=== PATIENT | female | born 1965 | race Caucasian/White ===

== ENCOUNTER 2016-06-01 03:19 | Outpatient (CLI) | payer OTHER | END 2016-06-01 03:20 | disposition home or self-care (01) | LOC: MADLAB 03:19 | PROVIDERS: ATTEND Family Medicine | DX: N83.209 Unspecified ovarian cyst, unspecified side (principal) | CPT/HCPCS: 36415; 86304 ==

== ENCOUNTER 2016-10-12 19:17 | Emergency (ER) | payer OTHER ==
[2016-10-12] MEDS ORDERED: Albuterol Sulfate 2.5 mg/0.5 ml Neb ONE (19:21)
[2016-10-12] MEDS ORDERED: Dexamethasone 4 mg/ml Vial ONE (19:21)
[2016-10-12] MEDS ORDERED: Dexamethasone 10 MG/ML VIAL ONE (19:22)
[2016-10-12] MEDS ORDERED: EPINEPHrine 1 MG/ML AMP ONE (19:22)
[2016-10-12] MEDS ORDERED: diphenhydrAMINE HCl 50 MG/ML 1 ML VIAL ONE (19:27)
[2016-10-12] MEDS ORDERED: Famotidine In NaCl 20 mg/50 ml Premix Bag ONE (19:33)
[2016-10-12] MEDS ORDERED: Ondansetron HCl/PF 4 MG/2 ML Vial ONE (19:49)
== END 2016-10-13 01:10 | disposition home or self-care (01) ==
LOC: MADERS 19:17
DX: T78.2XXA Anaphylactic shock, unspecified, initial encounter (principal); E11.9 Type 2 diabetes mellitus without complications; E78.5 Hyperlipidemia, unspecified; E78.00 Pure hypercholesterolemia, unspecified; I10 Essential (primary) hypertension; Z79.84 Long term (current) use of oral hypoglycemic drugs; Z79.899 Other long term (current) drug therapy
CPT/HCPCS: 96372; 96374; 96375; J0171; J1100; J1200; J2405; J7611; J7620

== ENCOUNTER 2017-07-06 01:37 | Outpatient (CLI) | payer OTHER ==
[2017-07-06 01:40] LABS: Bilirubin Moderate (Negative); Blood, Urine Negative (Negative); Glucose, Urine (Dipstick) Negative (Negative); Leukocyte Trace (Negative); Nitrite Negative (Negative); Protein, Urine (Dipstick) 100 mg/dL (Neg-Trace); Urobilinogen 0.2 mg/dL (0.2-1.0)
[2017-07-06 01:42] LABS: Clarity Cloudy (Clear)
[2017-07-06 01:48] LABS: RBC/HPF None Seen HPF (0-3); WBC/HPF 0-3 HPF (0-3)
[2017-07-06 01:49] LABS: Bacteria/HPF Rare-Few HPF (None Seen)
[2017-07-06 01:50] LABS: Crystals/HPF 3+ URIC ACID HPF (Negative)
== END 2017-07-06 01:38 | disposition home or self-care (01) ==
LOC: MADLAB 01:37
PROVIDERS: ATTEND Urology
DX: N12 Tubulo-interstitial nephritis, not specified as acute or chronic (principal); R30.0 Dysuria
CPT/HCPCS: 87086

== ENCOUNTER 2017-09-10 09:42 | Outpatient (CLI) | payer OTHER ==
[2017-09-10 10:24] LABS: ALT (SGPT) 27 U/L (8-55); AST (SGOT) 21 U/L (5-34); Albumin 4.6 g/dL (3.5-5.0); Alkaline Phosphatase 115 U/L (40-150); Anion Gap 17 mmol/L (10-20); BUN (Urea Nitrogen) 21 mg/dL (7.0-18.7); Bilirubin, Direct 0.3 mg/dL (0.1-0.3); Bilirubin, Total 0.9 mg/dL (0.2-1.2); Calc. Creatinine Clearance 0 mL/min (70-130); Calcium 10.2 mg/dL (7.8-10.44); Carbon Dioxide 26 mmol/L (22-29); Cardiac Risk 3.8 (Less than 4.5); Chloride 104 mmol/L (98-107); Cholesterol 157 mg/dl (< 200 Desired); Estimated GFR-MDRD 73; Glucose 85 mg/dL (70-105); HDL Cholesterol 41 mg/dL (>60 Neg Risk); LDL Cholesterol, Calculated 88 mg/dL; Potassium 3.8 mmol/L (3.5-5.1); Protein, Total 7.6 g/dL (6.0-8.3); Sodium 143 mmol/L (136-145); Triglycerides 142 mg/dL (Less than 150)
[2017-09-10 17:40] LABS: Folate (Folic Acid) 7.7 ng/mL (7.0-31.4)
== END 2017-09-10 09:43 | disposition home or self-care (01) ==
LOC: MADLAB 09:42
PROVIDERS: ATTEND Surgery
DX: R30.0 Dysuria (principal)
CPT/HCPCS: 36415; 80053; 80061; 82248; 82306; 82607; 82746; 84425; 84443

== ENCOUNTER 2017-09-13 18:15 | Emergency (ER) | payer OTHER ==
[~2017-09-13 18:15] MED LIST: diphenhydrAMINE 50 MG/ML VIAL ONE
[2017-09-13] MEDS ORDERED: Ondansetron HCl/PF 4 MG/2 ML Vial ONE (18:24)
[2017-09-13] MEDS ORDERED: EPINEPHrine 1 MG/ML AMP ONE (18:36)
[2017-09-13] MEDS ORDERED: Dexamethasone 10 MG/ML VIAL ONE (19:34)
== END 2017-09-13 22:54 | disposition home or self-care (01) ==
LOC: MADERS 18:15
DX: T78.40XA Allergy, unspecified, initial encounter (principal); E11.9 Type 2 diabetes mellitus without complications; I10 Essential (primary) hypertension; E78.5 Hyperlipidemia, unspecified; G43.909 Migraine, unspecified, not intractable, without status migrainosus; Z79.84 Long term (current) use of oral hypoglycemic drugs; Z79.899 Other long term (current) drug therapy
CPT/HCPCS: 96372; 96374; 96375; J0171; J1100; J1200; J2405; J7620

== ENCOUNTER 2018-04-26 06:34 | Outpatient (CLI) | payer OTHER ==
--- NOTE | 2018-04-26 08:36 | RAD ---
ABDOMEN ONE VIEW: History: History of renal calculi. FINDINGS: Multiple surgical clips are noted in the upper abdomen. No overt renal or acute calculus. Gas and fecal material in the colon. Calcified phleboliths in the pelvis. IMPRESSION: Unremarkable KUB. Numerous post-surgical clips. No overt renal or calculus. POS: [facility]
== END 2018-04-26 06:35 | disposition home or self-care (01) ==
LOC: MADRAD 06:34
PROVIDERS: ATTEND Urology
DX: Z87.442 Personal history of urinary calculi (principal)
CPT/HCPCS: 74018

== ENCOUNTER 2018-08-02 02:59 | Emergency (ER) | payer OTHER ==
--- NOTE | 2018-08-02 08:42 | RAD ---
LEFT HAND THREE VIEWS: History: Hand and thumb pain. FINDINGS: Minimal arthritic changes of the first metacarpal phalangeal joint and first carpal metacarpal joint spaces are seen. There are no signs of fracture. IMPRESSION: No acute injury. POS: [facility]
== END 2018-08-02 03:59 | disposition home or self-care (01) ==
LOC: MADERS 02:59
DX: S63.642A Sprain of metacarpophalangeal joint of left thumb, initial encounter (principal); E11.9 Type 2 diabetes mellitus without complications; E78.5 Hyperlipidemia, unspecified; G43.909 Migraine, unspecified, not intractable, without status migrainosus; Z79.899 Other long term (current) drug therapy; W22.8XXA Striking against or struck by other objects, initial encounter

== ENCOUNTER 2019-02-21 18:24 | Outpatient (CLI) | payer OTHER ==
[2019-02-21 20:21] LABS: Bilirubin Negative (Negative); Blood, Urine Trace (Negative); Clarity Clear (Clear); Glucose, Urine (Dipstick) Negative (Negative); Leukocyte Trace (Negative); Nitrite Positive (Negative); Protein, Urine (Dipstick) Negative (Neg-Trace); Urobilinogen 0.2 mg/dL (Less than 2)
[2019-02-21 20:29] LABS: RBC/HPF 0-3 HPF (0-3)
[2019-02-21 20:30] LABS: Bacteria/HPF 4+ HPF (None Seen); Squamous Epithelial 0-3 HPF (0-3)
== END 2019-02-21 18:25 | disposition home or self-care (01) ==
LOC: MADLAB 18:24
PROVIDERS: ATTEND Family Medicine
DX: N39.0 Urinary tract infection, site not specified (principal)
CPT/HCPCS: 81001; 87077; 87086; 87186

== ENCOUNTER 2019-09-16 02:38 | Outpatient (CLI) | payer OTHER ==
[2019-09-17 02:57] LABS: Clarity Slightly Cloudy (Clear)
[2019-09-17 02:58] LABS: Bilirubin Negative (Negative); Blood, Urine Small (Negative); Glucose, Urine (Dipstick) Negative (Negative); Leukocyte Trace (Negative); Nitrite Positive (Negative); Protein, Urine (Dipstick) Negative (Neg-Trace); Urobilinogen 0.2 mg/dL (Less than 2)
[2019-09-17 03:00] LABS: Bacteria/HPF 4+ HPF (None Seen); Squamous Epithelial 0-3 HPF (0-3)
== END 2019-09-16 02:39 | disposition home or self-care (01) ==
LOC: MADLAB 02:38
PROVIDERS: ATTEND Family Medicine
DX: Z00.00 Encounter for general adult medical examination without abnormal findings (principal)
CPT/HCPCS: 81001

== ENCOUNTER 2019-11-16 19:12 | Outpatient (CLI) | payer OTHER ==
[2019-11-16 19:23] LABS: Bilirubin Negative (Negative); Blood, Urine Trace (Negative); Clarity Slightly Cloudy (Clear); Glucose, Urine (Dipstick) Negative (Negative); Ketone, Urine Negative (Negative); Leukocyte Trace (Negative); Nitrite Negative (Negative); Protein, Urine (Dipstick) Negative (Neg-Trace); Specific Gravity, Urine 1.025 (1.005-1.030); Urobilinogen 0.2 mg/dL (Less than 2)
== END 2019-11-16 19:13 | disposition home or self-care (01) ==
LOC: MADLAB 19:12
PROVIDERS: ATTEND Family Medicine
DX: Z00.00 Encounter for general adult medical examination without abnormal findings (principal)
CPT/HCPCS: 81003

== ENCOUNTER 2020-10-03 19:54 | Outpatient (CLI) | payer OTHER ==
[2020-10-04 04:02] LABS: Clarity Clear (Clear)
[2020-10-04 04:03] LABS: Bilirubin Negative (Negative); Blood, Urine Large (Negative); Glucose, Urine (Dipstick) Negative (Negative); Ketone, Urine Negative (Negative); Leukocyte Moderate (Negative); Nitrite Negative (Negative); Protein, Urine (Dipstick) > or equal to 300 mg/dL (Neg-Trace); Urobilinogen 0.2 mg/dL (Less than 2)
[2020-10-04 04:10] LABS: RBC/HPF Greater than 50 HPF (0-3)
[2020-10-04 04:11] LABS: Bacteria/HPF 4+ HPF (None Seen); Mucous/LPF 3+ LPF (<2+); WBC/HPF Greater than 50 HPF (0-3)
== END 2020-10-03 19:55 | disposition home or self-care (01) ==
LOC: MADRAD 19:54
PROVIDERS: ATTEND Urology
DX: N20.0 Calculus of kidney (principal); Z96.0 Presence of urogenital implants
CPT/HCPCS: 74018; 81001; 87086

== ENCOUNTER 2021-01-13 03:01 | Emergency (ER) | payer OTHER ==
[2021-01-13] MEDS ORDERED: Sodium Chloride 0.9% 500 ML ONE (03:38)
[2021-01-13] MEDS ORDERED: Sodium Chloride 0.9% 2,000 ML ONE (03:38)
[2021-01-13] MEDS ORDERED: Fentanyl 100 MCG/2 ML VIAL ONE ×2 (03:40→07:22)
[2021-01-13] MEDS ORDERED: Sodium Chloride 0.9% 250 ML 500 ML ONE (03:40)
[2021-01-13] MEDS ORDERED: Vancomycin HCl 750 MG VIAL ONE (03:40)
[2021-01-13] MEDS ORDERED: Ondansetron PF 4 MG/2 ML Vial ONE (03:41)
[2021-01-13 03:59] LABS: Bilirubin Small (Negative); Blood, Urine Small (Negative); Clarity Cloudy (Clear); Glucose, Urine (Dipstick) Negative (Negative); Ketone, Urine Trace mg/dL (Negative); Leukocyte Small (Negative); Nitrite Positive (Negative); Protein, Urine (Dipstick) > or equal to 300 mg/dL (Neg-Trace); Specific Gravity, Urine 1.025 (1.005-1.030)
[2021-01-13 04:02] LABS: ALT (SGPT) 22 U/L (8-55); AST (SGOT) 23 U/L (5-34); Albumin 4.1 g/dL (3.5-5.0); Alkaline Phosphatase 92 U/L (40-110); Anion Gap 18 mmol/L (10-20); BUN (Urea Nitrogen) 18 mg/dL (9.8-20.1); Bilirubin, Total 2.6 mg/dL (0.2-1.2); Calc. Creatinine Clearance 0 mL/min (70-130); Calcium 10.4 mg/dL (7.8-10.44); Carbon Dioxide 21 mmol/L (22-29); Chloride 101 mmol/L (98-107); Globulin 3.4 g/dL (2.4-3.5); Glucose 158 mg/dL (70-105); Potassium 3.9 mmol/L (3.5-5.1); Protein, Total 7.5 g/dL (6.0-8.3); Sodium 136 mmol/L (136-145)
[2021-01-13 04:15] LABS: Bacteria/HPF 2+ HPF (None Seen); RBC/HPF 0-3 HPF (0-3); Renal Epithelial 0-3 HPF (None Seen); Transitional Epithelial 0-3 HPF (None Seen); WBC/HPF Greater Than 50 HPF (0-3)
[2021-01-13 04:25] LABS: Band 4 % (5-11); Hemoglobin 14.8 g/dL (12.0-16.0); Lymphocytes 2 % (21-51); MDiff Complete? YES; Mean Corpuscular HGB CONC 31.4 g/dL (32.0-36.0); Mean Corpuscular Hemoglobin 27.8 pg (27.0-31.0); Mean Corpuscular Volume 88.7 fL (78.0-98.0); Mean Platelet Volume 10.2 fL (7.4-10.4); Monocytes 2 % (0-10); Neutrophil 92 % (42-75); Platelet Count 195 thou/uL (130-400); RBC Distribution Width 12.8 % (11.5-14.5); RBC Morphology Normal; Red Blood Cell (RBC) Count 5.33 mill/uL (4.20-5.40); White Blood Cell (WBC) Count 31.3 thou/uL (4.8-10.8)
[2021-01-13] MEDS ORDERED: Acetaminophen 500 MG TAB ONE (07:22)
[2021-01-13 08:52] LABS: SARS-CoV-2 NAA Rapid Test Not Detected (NotDetected)
== END 2021-01-13 09:26 | disposition short-term general hospital (02) ==
LOC: MADERS 03:01
DX: A41.9 Sepsis, unspecified organism (principal); I10 Essential (primary) hypertension; E11.9 Type 2 diabetes mellitus without complications; E78.5 Hyperlipidemia, unspecified; E78.00 Pure hypercholesterolemia, unspecified; Z79.899 Other long term (current) drug therapy
CPT/HCPCS: 74176; 80053; 81003; 81015; 83605; 85025; 87040; 87077; 87086; 87149; 87186; 96365; 96367; 96375; 96376; J1956; J2405; J3010; J3370; J7030; J7050; U0002

== ENCOUNTER 2021-04-05 06:29 | Outpatient (CLI) | payer BC ==
[2021-04-05 07:15] LABS: SARS-CoV-2 NAA Rapid Test Not Detected (NotDetected)
== END 2021-04-05 06:30 | disposition home or self-care (01) ==
LOC: MADLAB 06:29
PROVIDERS: ATTEND Family Medicine
DX: Z20.822 Contact with and (suspected) exposure to COVID-19 (principal)
CPT/HCPCS: U0002

== ENCOUNTER 2021-06-13 02:16 | Outpatient (CLI) | payer SELFPAY ==
[2021-06-13 02:25] LABS: Bilirubin Negative (Negative); Blood, Urine Negative (Negative); Clarity Clear (Clear); Glucose, Urine (Dipstick) Negative (Negative); Ketone, Urine Negative (Negative); Leukocyte Negative (Negative); Nitrite Negative (Negative); Protein, Urine (Dipstick) Negative (Neg-Trace); Urobilinogen 0.2 mg/dL (Less than 2)
[2021-06-13 02:33] LABS: Specific Gravity, Urine 1.023 (1.002-1.036)
== END 2021-06-13 02:17 | disposition home or self-care (01) ==
LOC: MADLAB 02:16
PROVIDERS: ATTEND Urology
DX: Z00.00 Encounter for general adult medical examination without abnormal findings (principal)
CPT/HCPCS: 81003

== ENCOUNTER 2021-09-05 01:56 | Emergency (ER) | payer BC, OTHER | END 2021-09-05 02:32 | disposition home or self-care (01) | LOC: MADERS 01:56 | DX: S97.111A Crushing injury of right great toe, initial encounter (principal); S93.501A Unspecified sprain of right great toe, initial encounter; E11.9 Type 2 diabetes mellitus without complications; E78.5 Hyperlipidemia, unspecified; I10 Essential (primary) hypertension; G43.909 Migraine, unspecified, not intractable, without status migrainosus; Z79.899 Other long term (current) drug therapy; W31.9XXA Contact with unspecified machinery, initial encounter ==

== ENCOUNTER 2023-03-16 20:54 | Emergency (ER) | payer BC ==
[~2023-03-16 20:54] MED LIST changes: +Sodium Chloride 0.9% 1,000 ML BAG ONE; -diphenhydrAMINE 50 MG/ML VIAL ONE
[2023-03-16] MEDS ORDERED: diphenhydrAMINE 50 MG/ML VIAL ONE (21:30)
[2023-03-16] MEDS ORDERED: Morphine 4 MG/ML VIAL ONE (21:30)
[2023-03-16] MEDS ORDERED: Metoclopramide HCl 10 MG (2 mL) VIAL ONE (21:30)
[2023-03-16 21:52] LABS: ALT (SGPT) 152 U/L (8-55); AST (SGOT) 32 U/L (5-34); Albumin 5.6 g/dL (3.5-5.0); Alkaline Phosphatase 273 U/L (40-110); Anion Gap 20 mmol/L (10-20); BUN (Urea Nitrogen) 16 mg/dL (9.8-20.1); Bilirubin, Total 0.9 mg/dL (0.2-1.2); Calc. Creatinine Clearance 0 mL/min (70-130); Calcium 10.5 mg/dL (7.8-10.44); Carbon Dioxide 23 mmol/L (22-29); Chloride 102 mmol/L (98-107); Estimated GFR 48; Globulin 3.4 g/dL (2.4-3.5); Glucose 140 mg/dL (70-105); Lipase 13 U/L (8-78); Magnesium 1.9 mg/dL (1.6-2.6); Potassium 3.7 mmol/L (3.5-5.1); Sodium 141 mmol/L (136-145)
[2023-03-16 22:02] LABS: #Basophils 0.1 thou/uL (0.0-0.2); #Lymphocytes 1.3 thou/uL (1.20-3.40); #Monocytes 0.4 thou/uL (0.11-0.59); #Neutrophils 11.2 thou/uL (1.40-6.50); %Basophils 0.6 % (0.0-1.0); %Eosinophils 0.2 % (0.0-10.0); %Monocytes 3.2 % (0.0-10.0); Hematocrit 56.5 % (36.0-47.0); Hemoglobin 17.2 g/dL (12.0-16.0); Mean Corpuscular HGB CONC 30.5 g/dL (32.0-36.0); Mean Corpuscular Hemoglobin 26.7 pg (27.0-31.0); Mean Corpuscular Volume 87.5 fl (78.0-98.0); Mean Platelet Volume 14.2 fL (7.4-10.4); Platelet Count 243 10x3/uL (130-400); RBC Distribution Width 12.9 % (11.5-14.5); Red Blood Cell (RBC) Count 6.46 mill/uL (4.20-5.40)
[2023-03-16] MEDS ORDERED: Promethazine HCl 25 MG SUPP ONE (22:17)
== END 2023-03-16 23:30 | disposition short-term general hospital (02) ==
LOC: MADERS 20:54
DX: N17.9 Acute kidney failure, unspecified (principal); E86.0 Dehydration; R11.2 Nausea with vomiting, unspecified; E11.9 Type 2 diabetes mellitus without complications; E78.00 Pure hypercholesterolemia, unspecified; Z79.899 Other long term (current) drug therapy
CPT/HCPCS: 74177; 80053; 83605; 83690; 83735; 83880; 85025; 87040; 96361; 96374; 96375; J1200; J2270; J2765; J7050

== ENCOUNTER → 2023-04-16 | Day surgery (SDC) | payer BC | LOC: MADERS 21:06 | PROVIDERS: ATTEND Family Medicine | DX: Z51.81 Encounter for therapeutic drug level monitoring (principal); Z79.899 Other long term (current) drug therapy | CPT/HCPCS: J1642 ==